=== PATIENT | male | born 1960 | race Caucasian/White ===

== ENCOUNTER 2018-11-30 00:26 | Emergency (ER) | payer OTHER ==
[~2018-11-30] VITALS: Ht 180.3 cm; Wt 83.9 kg
[2018-11-30 00:26] VITALS: BP_SYST 161
[2018-11-30 00:50] VITALS: BP_SYST 140
== END 2018-11-30 00:50 ==
LOC: SED 00:26
DX: S60.512A Abrasion of left hand, initial encounter (principal); V43.52XA Car driver injured in collision with other type car in traffic accident, initial encounter; Y93.89 Activity, other specified; Y92.410 Unspecified street and highway as the place of occurrence of the external cause; Y99.8 Other external cause status
CPT/HCPCS: 99283